=== PATIENT | female | born 1945 | race Caucasian/White ===

== ENCOUNTER → 2017-08-23 | Outpatient (CLI) | payer MEDICARE, BC ==
[~2017-08-23] MED LIST: AMINOPHYLLINE 25 MG/ML, 10ML ONE; CARV6.252 PO; ETOD400T PO; GABA-826 PO; LEFL20TA16 PO; LEVO175T2 PO; REGADENOSON 0.4 MG/5 ML SYRINGE ONE; TEMA30CA PO; WARF7.5T6 PO
== END | disposition home or self-care (01) ==
LOC: CFH 08:21
PROVIDERS: ATTEND Internal Medicine Cardiovascular Disease
DX: I25.9 Chronic ischemic heart disease, unspecified (principal); I10 Essential (primary) hypertension
CPT/HCPCS: 78452; 93017; A9502; J0280; J2785

== ENCOUNTER → 2018-03-20 | Outpatient (CLI) | payer MEDICARE, BC ==
[~2018-03-20] MED LIST changes: -AMINOPHYLLINE 25 MG/ML, 10ML ONE; -REGADENOSON 0.4 MG/5 ML SYRINGE ONE; +WARF7.5T46 PO; -WARF7.5T6 PO
== END | disposition home or self-care (01) ==
LOC: CVU 15:45
PROVIDERS: ATTEND Family Medicine
DX: Z01.818 Encounter for other preprocedural examination (principal); I08.1 Rheumatic disorders of both mitral and tricuspid valves; I25.2 Old myocardial infarction; Z85.3 Personal history of malignant neoplasm of breast; Z85.820 Personal history of malignant melanoma of skin; Z95.0 Presence of cardiac pacemaker
CPT/HCPCS: 93306

== ENCOUNTER 2019-07-17 09:10 | Inpatient (IN) | payer MEDICARE, BC ==
[~2019-07-17] VITALS: Ht 172.7 cm; Wt 90.6 kg
[~2019-07-17 09:10] MED LIST changes: +AMANTIDINE PO; +APIX5TAB PO; +CARB200T PO; +EPINEPHRINE 1 MG/ML, 1ML ONE; +GABA300C10 PO; +KETOROLAC 60 MG/2 ML ONE; +LEVO175T5 PO; +QUIN324C3 OP; +ROPIvacaine/PF 0.2%, 20 ML ONE; +SODIUM CHLORIDE 0.9% 50 ML ONE; +TRANEXAMIC ACID 100 MG/ML, 10ML ONE; +VANCOMYCIN 1,000 MG ONE
[2019-07-17] MEDS ORDERED: GABAPENTIN 300 MG CAPSULE PO ONE (09:30)
[2019-07-17] MEDS ORDERED: VANCOMYCIN 1,600 MG in SODIUM CHLORIDE 0.9% 250 ML IV ONE (09:30)
[2019-07-17] MEDS ORDERED: VANCOMYCIN PER PHARMACY MC PRN (09:30)
[2019-07-17] MEDS ORDERED: ACETAMINOPHEN 500 MG TABLET PO ONE (09:30)
[2019-07-17] MEDS ORDERED: MIDAZOLAM 1 MG/ML, 2ML ONE (10:49)
[2019-07-17] MEDS ORDERED: FENTANYL PF 250 MCG/5ML ONE (10:50)
[2019-07-17] MEDS ORDERED: LACTATED RINGERS 1,000 ML IV SCH (10:53)
[2019-07-17] MEDS ORDERED: TRANEXAMIC ACID 100 MG/ML, 10ML ONE (10:59)
[2019-07-17] MEDS ORDERED: EPINEPHRINE 1 MG/ML, 1ML ONE (11:02)
[2019-07-17] MEDS ORDERED: ROCURONIUM 10 MG/ML,10ML ONE (11:40)
[2019-07-17] MEDS ORDERED: LIDOCAINE PF 2%, 5ML ONE (11:40)
[2019-07-17] MEDS ORDERED: SUCCINYLCHOLINE 20 MG/ML, 10ML ONE (11:40)
[2019-07-17] MEDS ORDERED: CLINDAMYCIN 150 MG/ML, 6ML ONE (11:57)
[2019-07-17] MEDS ORDERED: DEXAMETHASONE 4 MG/ML, 1ML ONE (13:11)
[2019-07-17] MEDS ORDERED: CEFAZOLIN 1,000 MG ONE (13:11)
[2019-07-17] MEDS ORDERED: ONDANSETRON 2MG/ML, 2ML ONE (13:11)
[2019-07-17] MEDS ORDERED: PROPOFOL 10 MG/ML, 20ML ONE (13:11)
[2019-07-17] MEDS ORDERED: MEPERIDINE/PF 25MG/ML,1ML IVPush PRN (13:30)
[2019-07-17] MEDS ORDERED: MIDAZOLAM 1 MG/ML, 2ML IV PRN (13:30)
[2019-07-17] MEDS ORDERED: OXYcodone 5 MG/5 ML ORAL.SOL UDC PO PRN (13:30)
[2019-07-17] MEDS ORDERED: SCOPOLAMINE PATCH, 1.5MG PATCH.TD72 TD PRN (13:30)
[2019-07-17] MEDS ORDERED: PROMETHAZINE 25 MG/ML, 1ML IV PRN (13:30)
[2019-07-17] MEDS ORDERED: ACETAMINOPHEN 325 MG TABLET PO PRN (13:30)
[2019-07-17] MEDS ORDERED: ALBUTEROL/IPRATROPIUM 2.5MG/0.5MG, 3 ML NPPB PRN (13:30)
[2019-07-17] MEDS ORDERED: METOPROLOL 1 MG/ML, 5ML IV PRN (13:30)
[2019-07-17] MEDS ORDERED: hydrALAzine 20 MG/ML, 1ML IV PRN (13:30)
[2019-07-17] MEDS ORDERED: PROMETHAZINE 25 MG/ML, 1ML IM PRN (14:00)
[2019-07-17] MEDS ORDERED: PROMETHAZINE 12.5 MG SUPP PR PRN (14:00)
[2019-07-17] MEDS: ACETAMINOPHEN 500 MG TABLET PO SCH ×2 (14:00→19:21)
[2019-07-17] MEDS ORDERED: ONDANSETRON 4 MG TABLET PO PRN (14:00)
[2019-07-17] MEDS ORDERED: SENNA/DOCUSATE TABLET PO PRN (14:00)
[2019-07-17] MEDS ORDERED: PSYLLIUM PACKET PO PRN (14:00)
[2019-07-17] MEDS ORDERED: BISACODYL 10 MG SUPP PR PRN (14:00)
[2019-07-17] MEDS ORDERED: ZOLPIDEM 5MG TABLET PO PRN (14:00)
[2019-07-17] MEDS ORDERED: ALUMINUM/MAG/SIMETHICONE 30 ML UDC PO PRN (14:00)
[2019-07-17] MEDS: KETOROLAC 30 MG/1 ML IV SCH ×2 (14:00→20:36)
[2019-07-17] MEDS: SCOPOLAMINE PATCH, 1.5MG PATCH.TD72 TD SCH (14:00)
[2019-07-17] MEDS ORDERED: DIPHENHYDRAMINE 25 MG CAPSULE PO PRN (14:00)
[2019-07-17] MEDS ORDERED: HYDROmorphone 2 MG/ML, 1ML IVPush PRN (14:00)
[2019-07-17] MEDS ORDERED: ONDANSETRON 2MG/ML, 2ML IV PRN (14:00)
[2019-07-17] MEDS ORDERED: MAGNESIUM HYDROXIDE 8%, 30ML UDC PO PRN (14:00)
[2019-07-17] MEDS ORDERED: TRANEXAMIC ACID 1,000 MG in SODIUM CHLORIDE 0.9% 100 ML IVPB ONE (14:00)
[2019-07-17] MEDS ORDERED: HYDROmorphone 1 MG/ML, 1ML VIAL ONE ×2 (14:01→15:01)
[2019-07-17] MEDS ORDERED: OXYcodone 5 MG/5 ML ORAL.SOL UDC ONE (14:01)
[2019-07-17] MEDS ORDERED: FENTANYL PF 100 MCG/2ML ONE (14:01)
[2019-07-17] MEDS: FENTANYL PF 100 MCG/2ML IV PRN ×2 (14:06→14:11)
[2019-07-17] MEDS: HYDROmorphone 2 MG/ML, 1ML IVPush PRN ×7 (14:18→15:18)
[2019-07-17] MEDS ORDERED: HYDROmorphone 2 MG/ML, 1ML ONE (14:36)
[2019-07-17 16:05] VITALS: BP 146/78
[2019-07-17] MEDS: GABAPENTIN 300 MG CAPSULE PO SCH ×2 (16:56→20:33)
[2019-07-17] MEDS: CARBAMAZEPINE 200 MG TABLET PO SCH ×2 (16:56→20:33)
[2019-07-17] MEDS: D5%-0.45% NACL 1,000 ML IV SCH (16:58)
[2019-07-17] MEDS: CALCIUM/VITAMIN D3 250-125 TABLET PO SCH (17:00)
[2019-07-17] MEDS: FERROUS SULFATE 325 MG TABLET PO SCH (17:02)
[2019-07-17] MEDS: OXYcodone IR 5MG TABLET PO PRN (18:12)
[2019-07-17 20:16] VITALS: BP 169/95
[2019-07-17] MEDS: CEFAZOLIN PMX 1GM/50ML 50 ML IVPB SCH (20:32)
[2019-07-17] MEDS: APIXABAN 5 MG TABLET PO SCH (20:33)
[2019-07-17] MEDS: DOCUSATE 100 MG CAPSULE PO SCH (20:33)
[2019-07-18 00:46] VITALS: BP 127/71
[2019-07-18] MEDS: ACETAMINOPHEN 500 MG TABLET PO SCH ×4 (01:50→20:35)
[2019-07-18] MEDS: SCOPOLAMINE PATCH, 1.5MG PATCH.TD72 TD SCH (01:54)
[2019-07-18 04:07] VITALS: BP 148/68
[2019-07-18] MEDS: OXYcodone IR 5MG TABLET PO PRN ×3 (04:23→20:35)
[2019-07-18] MEDS: CEFAZOLIN PMX 1GM/50ML 50 ML IVPB SCH (04:51)
[2019-07-18] MEDS: D5%-0.45% NACL 1,000 ML IV SCH ×2 (04:54→19:40)
[2019-07-18] MEDS: CARBAMAZEPINE 200 MG TABLET PO SCH ×4 (05:51→20:35)
[2019-07-18] MEDS: LEVOTHYROXINE 175 MCG TABLET PO SCH (05:51)
[2019-07-18] MEDS: GABAPENTIN 300 MG CAPSULE PO SCH ×4 (05:51→20:35)
[2019-07-18] MEDS: DIAZEPAM 5 MG TABLET PO PRN ×3 (05:56→20:35)
[2019-07-18] MEDS ORDERED: DEXAMETHASONE 4 MG/ML, 1ML IVPush ONE (06:00)
[2019-07-18] MEDS ORDERED: KETOROLAC 30 MG/1 ML IVPush ONE (08:00)
[2019-07-18] MEDS: DOCUSATE 100 MG CAPSULE PO SCH ×2 (08:13→20:35)
[2019-07-18] MEDS: MULTIVITAMINS/MINERALS TABLET PO SCH (08:13)
[2019-07-18] MEDS: FERROUS SULFATE 325 MG TABLET PO SCH ×2 (08:13→17:29)
[2019-07-18] MEDS: CALCIUM/VITAMIN D3 250-125 TABLET PO SCH ×3 (08:13→17:29)
[2019-07-18] MEDS: ASCORBIC ACID 500 MG TABLET PO SCH (08:13)
[2019-07-18] MEDS: APIXABAN 5 MG TABLET PO SCH ×2 (08:13→20:35)
[2019-07-18] MEDS: LEFLUNOMIDE 20 MG TABLET PO SCH (08:14)
[2019-07-18 08:22] VITALS: BP 147/76
[2019-07-18] MEDS ORDERED: QUININE SULFATE 324 MG OP SCH (09:00)
[2019-07-18] MEDS: AMANTADINE 100 MG CAPSULE PO SCH (14:04)
[2019-07-18 15:19] VITALS: BP 119/69
[2019-07-18 20:16] VITALS: BP 142/76
[2019-07-19 02:08] VITALS: BP 126/71
[2019-07-19] MEDS: ACETAMINOPHEN 500 MG TABLET PO SCH ×4 (02:13→20:49)
[2019-07-19 05:43] LABS: ANION GAP 5 mmol/L (5-15); CALCIUM 8.1 mg/dL (8.5-10.1); CHLORIDE 112 mmol/L (98-107)
[2019-07-19 05:44] LABS: CREATININE 0.85 mg/dL (0.55-1.02)
[2019-07-19] MEDS: CARBAMAZEPINE 200 MG TABLET PO SCH ×4 (05:56→20:49)
[2019-07-19] MEDS: LEVOTHYROXINE 175 MCG TABLET PO SCH (05:56)
[2019-07-19] MEDS: GABAPENTIN 300 MG CAPSULE PO SCH ×4 (05:56→20:49)
[2019-07-19] MEDS: DIAZEPAM 5 MG TABLET PO PRN (06:11)
[2019-07-19] MEDS: OXYcodone IR 5MG TABLET PO PRN ×2 (06:11→15:42)
[2019-07-19 07:10] VITALS: BP 120/69
[2019-07-19] MEDS: D5%-0.45% NACL 1,000 ML IV SCH ×2 (09:00→21:22)
[2019-07-19] MEDS: CALCIUM/VITAMIN D3 250-125 TABLET PO SCH ×3 (09:18→15:42)
[2019-07-19] MEDS: ASCORBIC ACID 500 MG TABLET PO SCH (09:18)
[2019-07-19] MEDS: LEFLUNOMIDE 20 MG TABLET PO SCH (09:18)
[2019-07-19] MEDS: MULTIVITAMINS/MINERALS TABLET PO SCH (09:18)
[2019-07-19] MEDS: APIXABAN 5 MG TABLET PO SCH ×2 (09:18→20:49)
[2019-07-19] MEDS: DOCUSATE 100 MG CAPSULE PO SCH ×2 (09:18→20:49)
[2019-07-19] MEDS: FERROUS SULFATE 325 MG TABLET PO SCH ×2 (09:19→15:43)
[2019-07-19] MEDS: AMANTADINE 100 MG CAPSULE PO SCH (14:51)
[2019-07-19 15:59] VITALS: BP 150/72
[2019-07-19 19:15] VITALS: BP 130/72
[2019-07-20 00:37] VITALS: BP 118/73
[2019-07-20] MEDS: ACETAMINOPHEN 500 MG TABLET PO SCH ×3 (03:56→14:19)
[2019-07-20] MEDS: CARBAMAZEPINE 200 MG TABLET PO SCH ×3 (05:39→14:19)
[2019-07-20] MEDS: LEVOTHYROXINE 175 MCG TABLET PO SCH (05:39)
[2019-07-20] MEDS: GABAPENTIN 300 MG CAPSULE PO SCH ×3 (05:40→14:18)
[2019-07-20 07:02] VITALS: BP 132/71
[2019-07-20] MEDS: APIXABAN 5 MG TABLET PO SCH (08:04)
[2019-07-20] MEDS: MULTIVITAMINS/MINERALS TABLET PO SCH (08:04)
[2019-07-20] MEDS: LEFLUNOMIDE 20 MG TABLET PO SCH (08:05)
[2019-07-20] MEDS: CALCIUM/VITAMIN D3 250-125 TABLET PO SCH ×2 (08:05→11:37)
[2019-07-20] MEDS: ASCORBIC ACID 500 MG TABLET PO SCH (08:05)
[2019-07-20] MEDS: FERROUS SULFATE 325 MG TABLET PO SCH (08:05)
[2019-07-20] MEDS: DOCUSATE 100 MG CAPSULE PO SCH (08:05)
[2019-07-20] MEDS: D5%-0.45% NACL 1,000 ML IV SCH (10:55)
[2019-07-20] MEDS: OXYcodone IR 5MG TABLET PO PRN ×2 (11:37→16:20)
[2019-07-20] MEDS: DIAZEPAM 5 MG TABLET PO PRN (11:37)
[2019-07-20 12:45] VITALS: BP 128/73
[2019-07-20] MEDS: SCOPOLAMINE PATCH, 1.5MG PATCH.TD72 TD SCH (14:00)
[2019-07-20] MEDS: AMANTADINE 100 MG CAPSULE PO SCH (14:19)
[2019-07-20 16:37] VITALS: BP 126/76
[2019-07-22] MEDS ORDERED: LEVOTHYROXINE 175 MCG TABLET PO SCH (06:00)
== END 2019-07-20 16:43 | DRG 468 ==
LOC: ORIP 09:10 → 4NE 16:06
PROVIDERS: ADMIT Orthopaedic Surgery; ATTEND Orthopaedic Surgery
PROC: 0SP90JZ Removal of Synthetic Substitute from Right Hip Joint, Open Approach (ICD-10-PCS; 2019-07-17)
PROC: 0LNJ0ZZ Release Right Hip Tendon, Open Approach (ICD-10-PCS; 2019-07-17)
PROC: 0SR90JA Replacement of Right Hip Joint with Synthetic Substitute, Uncemented, Open Approach (ICD-10-PCS; principal; 2019-07-17 11:45)
DX: T84.060A Wear of articular bearing surface of internal prosthetic right hip joint, initial encounter (principal); M25.551 Pain in right hip; Z96.641 Presence of right artificial hip joint; G89.29 Other chronic pain; J45.909 Unspecified asthma, uncomplicated; I25.10 Atherosclerotic heart disease of native coronary artery without angina pectoris; E11.9 Type 2 diabetes mellitus without complications; M06.9 Rheumatoid arthritis, unspecified; E03.9 Hypothyroidism, unspecified; I49.5 Sick sinus syndrome; Y83.8 Other surgical procedures as the cause of abnormal reaction of the patient, or of later complication, without mention of misadventure at the time of the procedure; I48.91 Unspecified atrial fibrillation; Z95.0 Presence of cardiac pacemaker; Y92.89 Other specified places as the place of occurrence of the external cause; Z88.0 Allergy status to penicillin; Z88.2 Allergy status to sulfonamides; Z88.8 Allergy status to other drugs, medicaments and biological substances; Z86.711 Personal history of pulmonary embolism; Z86.73 Personal history of transient ischemic attack (TIA), and cerebral infarction without residual deficits; Z79.899 Other long term (current) drug therapy
CPT/HCPCS: 36415; 72170; 80048; 85014; 85018; G0378; J0171; J0690; J1100; J1170; J1885; J2250; J2405; J2550; J2704; J2795; J3010; J3370; C1776; J0330